=== PATIENT | male | born 2005 | race Two or more races ===

== ENCOUNTER 2024-03-23 12:57 | Emergency (ER) | payer MEDICAID, SELFPAY ==
[2024-03-23 13:06] VITALS: BP 145/85; PULSE 85; RESP 16; TEMP 36.8; O2SAT 99; BMI 32.5
--- NOTE | 2024-03-23 13:30 | PD.EDEYE ---
ED Eye Problem RME/HPI General Chief complaint: Eye Problems Stated complaint: RIGHT EYE REDNESS, PAIN, SWELLING Time Seen by Provider: 03/23/24 12:58 Arrival date/time: 03/23/24 12:57 18-year-old male presents emergency department complains of right eye redness and irritation patient reports that he developed pain this morning Limitations: no limitations Related Data Previous Rx's ?Medication ?Instructions ?Recorded tobramycin 0.3 %-dexamethasone 0.1 2 drp ophthalmic (eye) QID 7 days 03/23/24 % eye drops,suspension (TobraDex) #10 mL Allergies Allergy/AdvReac Type Severity Reaction Status Date / Time No Known Allergies Allergy Verified 04/27/23 06:27 Review of Systems Review of Systems Systems Reviewed: All systems reviewed, normal except as documented Constitutional Constitutional: Reports system reviewed and no additional complaints, except as documented, Denies fever(s) and Denies headache(s) Eyes Eyes: Reports system reviewed and no additional complaints, except as documented, Denies blurry vision and Reports irritation ENT Ears, Nose, Mouth, and Throat: Reports system reviewed and no additional complaints, except as documented, Denies headache(s), Denies nasal congestion and Denies nasal discharge Cardiovascular Cardiovascular: Reports system reviewed and no additional complaints, except as documented, Denies chest pain and Denies dyspnea Respiratory Respiratory: Reports system reviewed and no additional complaints, except as documented, Denies chest congestion, Denies cough and Denies dyspnea Gastrointestinal Gastrointestinal: Reports system reviewed and no additional complaints, except as documented and Denies abdominal pain Integumentary/Breasts Skin/Breast: Reports system reviewed and no additional complaints, except as documented and Denies rash Neurologic Neurologic: Reports system reviewed and no additional complaints, except as documented, Reports as per HPI and Denies headache(s) Past Medical History Social History SMOKING STATUS: Never smoker ED Exam General Limitations: Present no limitations General appearance: Present alert and in no apparent distress Head Head exam: Present atraumatic Eye Eye exam: Present conjunctival injection and other (Foreign body right eye) ENT ENT exam: Present normal exam, normal oropharynx and mucous membranes moist Neck Neck exam: Present normal inspection, full ROM and trachea midline Chest Chest inspection: Present normal inspection and symmetric chest wall rise Respiratory Respiratory exam: Present normal lung sounds bilaterally Cardiovascular Cardiovascular exam: Present regular rate, normal rhythm and normal heart sounds Abdominal Exam Abdominal exam: Present soft and normal bowel sounds Extremities Exam Extremities exam: Present normal inspection and full ROM Back Exam Back exam: Present normal inspection and full ROM Neurological Exam Neurological exam: Present alert, oriented X3 and CN II-XII intact Psychiatric Psychiatric exam: Present normal affect and normal mood Skin Skin exam: Present warm, dry, intact and normal color Course Quality Measures none Vital Signs Vital signs: Vital Signs Temperature 98.3 F 03/23/24 13:06 Pulse Rate 85 03/23/24 13:06 Respiratory Rate 16 03/23/24 13:06 Blood Pressure 145/85 H 03/23/24 13:06 Pulse Oximetry (%) 99 03/23/24 13:06 Oxygen Delivery Method Room Air 03/23/24 13:06 O2 saturation 99% room air within normal limits Eye MDM Narrative MDM Narrative:: 18-year-old male presents emergency department complains of right eye redness and irritation patient reports that he developed pain this morning Clinically on exam patient appears to have foreign body at the 3 o'clock position pupil appears to be normal patient has no disturbances in vision conjunctiva is injected Consultation: I spoke with Dr. Sumner he states he will see the patient as office at this time remove any foreign bodies and evaluate the eye further Patient discharged home with TobraDex per the riprap placing supervisor recommendation Patient discharged in no distress patient understands he must go at this time to see Dr. Sumner for worsening symptoms to return immediately Patient data External records reviewed:: [facility] previous records Clinical information provided by:: patient Social determinants that could affect healthcare access:: none Patient has the following chronic illnesses:: None How is presenting disease/condition affected by chronic disease/condition?: no chronic disease Evaluation data The following diagnostics were reviewed and interpreted by me:: other (specify) (N/A) Lab and/or radiology exams considered but not ordered:: Consider not ordered Interpretation Summary: N/A Medications / Prescriptions Medications or Prescriptions considered but not ordered:: Given Medication administrations:: Given Consultations Consultation(s) initiated? (list below): Yes Consultation #1 (Physician, Specialty, Details): Dr. Sumner ophthalmology Diagnosis Eye Problem Differential Diagnosis: corneal abrasion, conjunctivitis and corneal ulcer Most likely diagnosis given after review of the tests above:: Foreign body I Admission Indicated Admission indicated?: not indicated Admission Request Was there a request for admission?: No Disposition Plan Disposition Plan: Discharge Discharge Attestation Discharge Attestation: The patient and all family members were given an opportunity to ask questions and understood the discharge instructions. Discharge instructions specifically effects, indications for sooner follow up or return to the emergency department, and the expected course of current diagnosis. Patient condition: Stable Discharge Plan Plan Patient Disposition: HOME (Self Care) Disposition Comment: Stable Prescriptions/Referrals Prescriptions/Med Rec: New tobramycin-dexamethasone [TobraDex] 0.3-0.1 % drops,suspension 2 drp ophthalmic (eye) QID 7 Days Qty: 10 0RF Referrals: Santiago Hutton DO [Referring Provider] - 03/23/24 1:25 pm Problem List Clinical Impression: Foreign body of right eye Patient/Caregiver Discharge Instructions Additional Instructions: Please follow-up with the riprap placing supervisor right now go directly to his office Please inform the front office staff that the provider in the ER spoke with Dr. Sumner who states he will take care of you today Print Language: Wolof Stand Alone Forms: Magdalena Award Info., Work/School Release, Patient Portal Info Letter PA/[employer] Supervising Physician PA/ITALO Supervising Physician: Dr. Cameron
== END 2024-03-23 13:37 | disposition home or self-care (01) ==
LOC: SERX 13:36
PROVIDERS: Emergency Provider Emergency Medicine
DX: T15.91XA Foreign body on external eye, part unspecified, right eye, initial encounter (principal); W44.9XXA Unspecified foreign body entering into or through a natural orifice, initial encounter
CPT/HCPCS: 99281

== ENCOUNTER 2024-08-18 12:45 | Emergency (ER) | payer MEDICAID, SELFPAY ==
[2024-08-18 12:46] VITALS: BMI 32.5
[2024-08-18 12:57] VITALS: BP 138/76; PULSE 124; RESP 18; TEMP 38.3; O2SAT 99
--- NOTE | 2024-08-18 14:11 | XR_ITS ---
Examination: CT abdomen and pelvis without contrast. Coronal 3-D reconstructions. Sagittal 2-D reconstructions. Date and time of exam:August 18, 2024 1452 hours INDICATIONS: Left lower abdominal pain with nausea vomiting and fever today CTDI: vol (mGy): 8.71 DLP: (mGycm): 566 Technique: Axial images of the abdomen have been obtained, 3 mm slice thickness Intravenous contrast material has not been administered. Low dose protocols were performed. One or more of the following dose reduction techniques were used; automated exposure control, adjustment of the mA and/or KV according to patient size, use of iterative reconstruction technique. Findings: Diffuse fatty infiltration throughout the liver, liver mildly irregular in contour, no focal liver or splenic lesions No gallstones No pancreatic or adrenal mass No renal or ureteral calculi, no hydronephrosis Aorta normal size Normal appendix No bowel obstruction No diverticulitis Normal seminal vesicles Normal prostate Minimal thickening of urinary bladder wall up to 4 mm The osseous structures are intact IMPRESSION: No renal or ureteral calculi, no hydronephrosis Normal appendix No bowel obstruction diverticulitis or free air Mild thickening of the urinary bladder wall, consider cystitis
--- NOTE | 2024-08-18 14:13 | PD.EDABDPN ---
ED Abdominal Pain RME/HPI General Chief Complaint: Abdominal Pain Stated complaint: LOWER ABD PAIN RADIATING TO LOWER BACK X3 DAYS Time seen by provider: 08/18/24 13:07 Arrival date/time: 08/18/24 12:45 RME / HPI RME / HPI narrative: 18-year-old male patient came in for evaluation regarding left lower quadrant pain. Has been having left lower quadrant pain for 3 days. Patient is also complaining of fever comes and goes, severity moderate denies any vomiting but complain of loose stools denies any other complaints no medications taken prior travel. Related Data Previous Rx's ?Medication ?Instructions ?Recorded ciprofloxacin HCl 500 mg tablet 500 mg PO BID #10 tabs 08/18/24 (Cipro) ibuprofen 800 mg tablet 800 mg PO Q8H PRN pain #20 tabs 08/18/24 Allergies Allergy/AdvReac Type Severity Reaction Status Date / Time No Known Allergies Allergy Verified 08/18/24 12:48 Review of Systems Review of Systems Narrative Review of Systems: Review of system reviewed and within normal limits except mentioned in HPI ED Exam Narrative Physical exam: VITAL SIGNS: Reviewed. GENERAL APPEARANCE: Alert and interactive, follows commands, no acute distress, HEAD AND FACE: Non-traumatic. ENT: PERRL, pink conjunctivitis, eyelid no trauma, Mucous membrane moist. NECK: Supple, nontender, no nuchal rigidity. CHEST: No tenderness, no crepitus, no paradoxical movement, no retractions. LUNGS: Clear, well ventilated, symmetric, no rales, no wheezing, no ronchi, no stridor, good breath sounds bilaterally. HEART: Regular rate, regular rhythm, no murmur, no gallops. ABDOMEN: Soft, positive bowel sounds, nondistended, no guarding, left lower quadrant tenderness, no rebound, no masses, RECTAL: Deferred. GENITAL: Deferred. NEUROLOGICAL: Gross motor function intact sensory function intact, Appropriate for age. MUSCULOSKELETAL: low back nontender, full range of motion. EXTREMITIES: Nontender, full range of motion. SKIN: Color pink, dry, no rash, no lacerations, no abrasions, no contusions. LYMPHATICS: Deferred. Course Quality Measures none Orders Category Date Time Status Bedside COVID-19 Antigen Test NOW Care 08/18/24 13:07 Completed Bedside Influenza A&B Antigen Test NOW Care 08/18/24 13:[address] abdomen pelvis wo con Stat Exams 08/18/24 14:11 Completed CBC [CBC] Stat Lab 08/18/24 14:18 Completed CMP [Comprehensive Metabolic Panel] Stat Lab 08/18/24 14:18 Completed Lipase Stat Lab 08/18/24 14:18 Completed PTT [Partial Thromboplastin Time] Stat Lab 08/18/24 14:18 Completed UA, C/S IF [Urinalysis, C/S if Indicated] Stat Lab 08/18/24 16:06 Completed Ibuprofen Tab [Motrin Tab] Med 08/18/24 14:11 Discontinued 800 mg PO X1 ONE Vital Signs Vital signs: Vital Signs Temperature 101 F H 08/18/24 12:57 Pulse Rate 124 H 08/18/24 12:57 Respiratory Rate 18 08/18/24 12:57 Blood Pressure 138/76 H 08/18/24 12:57 Pulse Oximetry (%) 99 08/18/24 12:57 Oxygen Delivery Method Room Air 08/18/24 12:57 Abdominal Pain [facility] Narrative [facility] Narrative:: 18-year-old male patient came in for evaluation regarding left lower quadrant pain. Has been having left lower quadrant pain for 3 days. Patient is also complaining of fever comes and goes, severity moderate denies any vomiting but complain of loose stools denies any other complaints no medications taken prior travel. Patient CBC showed 14,[address] scan of the abdomen and pelvis came back with no acute pathology noted. Patient will be started on Cipro due to fever and leukocytosis and diarrhea. Patient data External records reviewed:: None Clinical information provided by:: patient Social determinants that could affect healthcare access:: none Patient has the following chronic illnesses:: None How is presenting disease/condition affected by chronic disease/condition?: no chronic disease Evaluation data The following diagnostics were reviewed and interpreted by me:: lab results and radiology exam(s) Lab and/or radiology exams considered but not ordered:: None Interpretation Summary: See results [facility] Medications / Prescriptions Medications or Prescriptions considered but not ordered:: None Medication administrations:: Medication Administration History Discontinued Medications Ibuprofen (Ibuprofen Tab 400 Mg Tablet) 800 mg PO X1 ONE Stop: 08/18/24 14:12 Last Admin: 08/18/24 14:20 Dose: 800 mg Documented By: SOCO Motrin Consultations Consultation(s) initiated? (list below): No Diagnosis Differential diagnosis abdominal pain: abdominal pain and gastroenteritis Most likely diagnosis given after review of the tests above:: Fever, gastroenteritis Admission Indicated Admission indicated?: not indicated Admission Request Was there a request for admission?: No Disposition Plan Disposition Plan: Discharge Discharge Attestation Discharge Attestation: The patient was given an opportunity to ask questions and understood the discharge instructions. Discharge instructions specifically effects, indications for sooner follow up or return to the emergency department, and the expected course of current diagnosis. Patient condition: Stable Discharge Plan Plan Patient Disposition: HOME (Self Care) Disposition Comment: Stable Prescriptions/Referrals Prescriptions/Med Rec: New ciprofloxacin HCl [Cipro] 500 mg tablet 500 mg PO BID Qty: 10 0RF ibuprofen 800 mg tablet 800 mg PO Q8H PRN (Reason: pain) Qty: 20 0RF Referrals: No Primary/Family,Physician [Primary Care Provider] - In 1 week Problem List Clinical Impression: Fever, Gastroenteritis, Abdominal pain Patient/Caregiver Discharge Instructions Discharge Activity: activity as tolerated Education Materials: Abdominal Pain Additional Instructions: Thank you for the opportunity for serving you today. You are stable for discharged . You are advised to: Follow-up with your PCP in 1 to 2 days Return to ED for worsening of symptoms Increase oral fluids Take medication as prescribed Print Language: Macedonian Stand Alone Forms: Magdalena Award Info., Patient Portal Info Letter
[2024-08-18] MEDS: IBUPROFEN TAB 400 MG TABLET 800 MG PO (14:20)
[2024-08-18 14:36] LABS: Basophils # (Auto) 0.1 Thou/mm3 (0.0-0.2); Basophils % (Auto) 0 % (0-2.5); Eosinophils % (Auto) 0 % (0-10); Hematocrit 42.3 % (41.0-53.0); Hemoglobin 14.3 g/dL (13.5-16.0); Immature Granulocytes % (Auto) 0 % (0-0); Immature Granulocytes Auto 0.05 Thou/mm3 (0.00-0.00); Lymphocytes % (Auto) 7 % (10-50); Mean Corpuscular HGB Conc 33.8 g/dl (31.0-37.0); Mean Corpuscular Hemoglobin 28.7 pg (25.0-35.0); Mean Corpuscular Volume 85 fL (80-100); Monocytes # (Auto) 0.9 Thou/mm3 (0.0-0.8); Monocytes % (Auto) 6 % (0-12); Neutrophils % (Auto) 86 % (37-80); Nucleated Red Blood Cell % 0 /100 WBC (0); Platelet Count 275 Thou/mm3 (140-440); RDW Standard Deviation 39.6 fL (35.1-43.9); Red Blood Count 4.98 Miln/mm3 (4.50-5.90)
[2024-08-18 14:48] LABS: Partial Thromboplastin Time 31.4 Seconds (22.0-36.0)
[2024-08-18 14:54] LABS: Alanine Aminotransferase 28 U/L (10-49); Albumin/Globulin Ratio 1.8 (1.2-2.2); Alkaline Phosphatase 110 U/L (46-116); Anion Gap 8 (7-16); Aspartate Amino Transferase 20 U/L (0-34); BUN/Creatinine Ratio 11 Ratio (12-20); Bilirubin,Total 0.5 mg/dL (0.3-1.2); Blood Urea Nitrogen 9 mg/dL (9-23); Calcium 9.6 mg/dL (8.3-10.6); Calcium (Corrected) 9.6 mg/dL (8.5-10.1); Carbon Dioxide 25.3 mMol/L (20.0-31.0); Chloride 107 mMol/L (98-107); Creatinine (Component) 0.8 mg/dL (0.6-1.3); Globulin 2.8 gm/dL (2.3-3.5); Glucose 97 mg/dL (74-106); Lipase 41 U/L (12-53); Osmolality,Calculated 278 (275-295); Potassium 3.8 mMol/L (3.4-5.1); Sodium 140 mMol/L (136-145); Total Protein 7.8 gm/dL (5.7-8.2); eGFR > 60 See Note
[2024-08-18 16:20] LABS: Collection Type, Urine Clean Catch; Squamous Epithelial Cell,Urine 0 /hpf (0-5)
[2024-08-18 16:44] LABS: Amorphous Crystals,Urine Present (Absent); Bilirubin,Urine Negative (Negative); Blood,Urine Negative (Negative); Color,Urine Yellow (Lt Yel-Yel); Culture Indicated,Urine Not Indicated; Glucose, Urine Negative (Negative); Ketones,Urine Negative (Negative); Leukocyte Esterase,Urine Negative (Negative); Nitrite,Urine Negative (Negative); PH,Urine 6.5 (5.0-7.0); Protein,Urine 1+ (Neg - Trace); RBC,Urine 1 /hpf (0-3); Specific Gravity,Urine 1.031 (1.001-1.035); Urobilinogen,Urine Negative mg/dL (0.0-1.0); WBC,Urine 5 /hpf (0-5)
[2024-08-18 16:52] VITALS: BP 122/78; PULSE 97; RESP 18; TEMP 37.1; O2SAT 99
[2024-08-18 16:55] LABS: Clarity,Urine Hazy (Clear/Hazy)
== END 2024-08-18 17:43 | disposition home or self-care (01) ==
PROVIDERS: Nurse Practitioner Family; Emergency Provider Emergency Medicine
DX: K52.9 Noninfective gastroenteritis and colitis, unspecified (principal)
CPT/HCPCS: 36415; 74176; 80053; 81001; 83690; 85025; 85730; 87400; 87811; 99284; A9270